=== PATIENT | male | born 1965 | race Caucasian/White ===

== ENCOUNTER 2020-12-10 21:06 | Inpatient (IN) | payer MEDICARE, OTHER ==
[~2020-12-10] VITALS: Ht 182.9 cm; Wt 82.1 kg
--- NOTE | 2020-12-10 21:10 | NUR ---
Patient BIB pvt ambulance from [facility]. Patient on 5150 hold for DTS /DTO. per 5150 hold patient was threatening to physically harm staff at assisted living he was at. Patient ambulating with steady gait. Follow commands selectively. Patient removed all articles of clothing upon arrival and demanding a gown in an aggressive manner. Provided gown to patient and assured safety. Patient noted standing and pacing with fists opening and closing. Dr. Paul aware with new orders received
--- NOTE | 2020-12-10 21:14 | NUR ---
Requested security at bedside. Per Security Nav he has other security matters to attend at this time. Explained patient needs supervision. Security states "he will be back KORTNEY".
[2020-12-10] MEDS ORDERED: HALOPERIDOL LACTATE 5 MG/1 ML VIAL IM ONE (21:15)
[2020-12-10] MEDS ORDERED: HALOPERIDOL LACTATE 5 MG/1 ML VIAL ONE (21:16)
--- NOTE | 2020-12-10 21:24 | NUR ---
Patient has been medically cleared by Dr. Alee Paul
[2020-12-10] MEDS ORDERED: HALO2TAB PO (21:25)
[2020-12-10] MEDS ORDERED: LORA-259 PO (21:25)
--- NOTE | 2020-12-10 21:29 | NUR ---
Attempted to give report on patient, was notified that "we are busy, wait 30 minutes".
--- NOTE | 2020-12-10 21:30 | NUR ---
Security at bedside present 1:1 with patient
--- NOTE | 2020-12-10 21:45 | NUR ---
Patient in bed sleeping but easily arousable. Breathing even and unlabored. denies any pain or discomfort. NAD noted. Security at bedside
--- NOTE | 2020-12-10 22:32 | NUR ---
Patient brought to [facility] via gurney from [facility] accompanied by staff nurse. Patient admitted on 5149 for Psychosis and DTO under the care of and . Per 5149 patient was threatening to physically harm staff at assisted living where he was .Upon assessment.Patient alert x4.No suidical ideation.Denies pain.No s/s of distress noted.Normal affect. Ambulates to bathroom .Skin dry and warm to touch.Demanding for sleeping pills.Skin assessment was limited d/t refusal.Patient's right handbook and advisement given to patient.Rights and unit rules/expectation explained.Pt oriented to the unit,the phone,the restrooms .Safety measures in place.Will continue to monitor.
[2020-12-10 22:45] VITALS: BP 128/68
[2020-12-10] MEDS ORDERED: BLOOD SUGAR DIAGNOSTIC 1 EACH STRIP VI ONE (23:00)
[2020-12-10] MEDS ORDERED: ACETAMINOPHEN 325 MG TABLET PO PRN (23:00)
[2020-12-10] MEDS ORDERED: MAGNESIUM HYDROXIDE 30 ML LIQUID UDC PO PRN (23:00)
[2020-12-10] MEDS ORDERED: MAG HYDROX/AL HYDROX/SIMETH 30 ML LIQUID UDC PO PRN (23:00)
[2020-12-10] MEDS: TEMAZEPAM 7.5 MG CAPSULE PO PRN (23:26)
[2020-12-11] MEDS: LORAZEPAM 0.5 MG TABLET PO PRN ×2 (01:42→06:59)
[2020-12-11] MEDS: NICOTINE 21 MG/24HR PATCH TD SCH (05:20)
--- NOTE | 2020-12-11 06:07 | NUR ---
PAtient slept 4 1/2 hrs.Demanding for nicotine gum.Applied nicotine patch on his upper arm .Patient Stated he still wants nicotine gums later this morning.
[2020-12-11 07:30] VITALS: BP 122/75
[2020-12-11 08:59] VITALS: BP 122/75
--- NOTE | 2020-12-11 11:46 | NUR ---
Gps/Safety Lamp Keeper- Lab. called has specimen available in the lab, needed order for MRSA swab , order was put in for Dr Sebastian
--- NOTE | 2020-12-11 12:39 | NUR ---
Gps/General Neurologist- Per P.T. patient refusing to work with him, patient is ambulatory noted steady gait
--- NOTE | 2020-12-11 15:50 | NUR ---
Gps/Fiscal Clerk- Stayed in his room most of the afternoon, napping on and off, wants his door closed. discouraged from closing his door.
[2020-12-11 16:00] VITALS: BP 126/87
[2020-12-11] MEDS: DIVALPROEX 500 MG TABLET.DR PO SCH (17:48)
[2020-12-11 20:00] VITALS: BP 127/79
[2020-12-11] MEDS: BENZTROPINE MESYLATE 0.5 MG TABLET PO SCH (20:15)
[2020-12-11] MEDS ORDERED: HALOPERIDOL 2 MG TABLET PO SCH (21:00)
[2020-12-11] MEDS: TEMAZEPAM 7.5 MG CAPSULE PO PRN (23:53)
--- NOTE | 2020-12-11 23:54 | NUR ---
GPS: Pt.still awake at this time. Easily irritable when approached by staff. Restoril 7.5mg given PO for insomnia. Discouraged from closing room door. Unit rules explained to pt.again. Safety checks done Q15 minutes as scheduled. Quiet environment provided to facilitate sleep.
[2020-12-12] MEDS: LORAZEPAM 0.5 MG TABLET PO PRN (00:43)
--- NOTE | 2020-12-12 06:26 | NUR ---
GPS: Pt. slept for 3.30 last night. Remains paranoid,guarded,easily irritable when approached. Showered earlier after some encouragements from staff. Safe environment provided. Will continue to monitor.
[2020-12-12 07:30] VITALS: BP 118/79
[2020-12-12] MEDS: BENZTROPINE MESYLATE 0.5 MG TABLET PO SCH ×2 (09:07→20:12)
[2020-12-12] MEDS: HALOPERIDOL 5 MG TABLET PO SCH ×2 (09:07→20:12)
[2020-12-12] MEDS: NICOTINE 21 MG/24HR PATCH TD SCH (09:08)
[2020-12-12] MEDS: DIVALPROEX 500 MG TABLET.DR PO SCH ×2 (09:08→17:39)
--- NOTE | 2020-12-12 10:42 | NUR ---
TATUM Family Contact: TATUM received a call from patient's brother, Sundeep ([phone]) from [place] who provided collateral information. Sundeep shared that patient was conserved in [place] for many years and was residing in [facility] ([phone]) for several years Peace Shravan ([phone]) Pot Builder at [facility]. Recently, patient's conservatorship was "dropped immediately" Conservator Mindy Moss ([phone]) from the [facility] Public Guardian. Sundeep stated that the patient was transferred to [facility] in [facility] ([phone]) where he was for a couple weeks until he was [facility]. TATUM discussed possible discharge plans with Sundeep for the patient here in [place]. Sundeep is agreeable with the patient going to a locked SNF. TATUM informed Sundeep that we will try to contact the public guardian's office to clarify why the case was dropped.
--- NOTE | 2020-12-12 11:02 | NUR ---
[facility] Public Guardian Contact: TATUM contacted patient's previous Conservator Mindy Moss ([phone]) from the [facility] Public Guardian. She stated that she is no longer the patient's conservator as the case was terminated by the court. TATUM inquired as to why the case was terminated and she stated she cannot discuss the case. Mindy provided the main number to the public guardian office ([phone]) to collect more information. TATUM called ([phone]) and left a message for Duty Worker for Angelica Romero to contact this manager social back.
--- NOTE | 2020-12-12 11:25 | NUR ---
TATUM Initial Discharge Plan: [place] [address] ([phone]). Patient will require locked SNF placement upon discharge. Patient's brother Sundeep Monte ([phone]) is involved in the patient's care however he lives in [place]. Sundeep requested a locked SNF placement for the patient. TATUM will continue to work with patient, family, and MD to ensure a safe and proper discharge plan.
--- NOTE | 2020-12-12 13:05 | NUR ---
Firearms Report: Antique Finisher completed and submitted a [employer] firearms report for 5150 danger to self, others, and grave disability certifications. A copy of report has been placed in patient chart.
[2020-12-12 15:00] VITALS: BP 128/82
[2020-12-12 20:10] VITALS: BP 129/63
[2020-12-12] MEDS: TEMAZEPAM 7.5 MG CAPSULE PO PRN (23:11)
[2020-12-13 06:26] LABS: BASOPHILS % (AUTO) 0.4 % (0.0-2.0); EOSINOPHILS # (AUTO) 0.1 K/uL (0.0-0.7); EOSINOPHILS % (AUTO) 0.7 % (0.0-7.0); HEMATOCRIT 43.3 % (36.7-47.1); HEMOGLOBIN 14.5 g/dL (12.5-16.3); LYMPHOCYTES # (AUTO) 4.2 K/uL (20.0-40.0); LYMPHOCYTES % (AUTO) 49.3 % (20.5-51.5); MEAN CORPUSCULAR HEMOGLOBIN 31.8 uug (23.8-33.4); MEAN CORPUSCULAR HGB CONC 33 g/dL (32.5-36.3); MEAN CORPUSCULAR VOLUME 95.1 fL (73.0-96.2); MONOCYTES # (AUTO) 0.4 K/uL (2.0-10.0); MONOCYTES % (AUTO) 4.8 % (0.0-11.0); NEUTROPHILS # (AUTO) 3.9 K/uL (1.8-8.9); NEUTROPHILS % (AUTO) 44.8 % (38.5-71.5); PLATELET COUNT (AUTO) 160 K/uL (152-348); RED BLOOD CELL COUNT(AUTO) 4.56 MIL/uL (4.06-5.63); WHITE BLOOD COUNT (AUTO) 8.6 K/uL (3.6-10.2)
[2020-12-13 06:54] LABS: BILIRUBIN,TOTAL 0.2 mg/dL (0.2-1.0); PHOSPHOROUS 3.6 mg/dL (2.5-4.9); POTASSIUM 4.1 mmol/L (3.5-5.1); TOTAL PROTEIN, SERUM 7.5 g/dL (6.4-8.2)
[2020-12-13 07:30] VITALS: BP 102/58
[2020-12-13] MEDS: BENZTROPINE MESYLATE 0.5 MG TABLET PO SCH ×2 (08:43→20:12)
[2020-12-13] MEDS: HALOPERIDOL 5 MG TABLET PO SCH ×2 (08:43→20:12)
[2020-12-13] MEDS: NICOTINE 21 MG/24HR PATCH TD SCH (08:43)
[2020-12-13] MEDS: DIVALPROEX 500 MG TABLET.DR PO SCH ×2 (08:43→17:27)
--- NOTE | 2020-12-13 10:13 | NUR ---
TATUM SNF Referral: Faxed patient's referral packet attention to Sundeep to the following facilities for review and possible placement [facility] ([phone]), [facility] [place] ([phone]), [facility] ([phone]), [facility] ([phone]). Addendum: 12/13/20 at 1508 by AMPARO ALMONTE Patient is accepted at [facility].
--- NOTE | 2020-12-13 15:31 | NUR ---
[facility] SNF Contact: TATUM spoke with Lakeshia from [facility] ([phone]) who stated that they are no longer able to accept the patient at their facility. Patient is accepted at [facility] ([phone]) for placement.
[2020-12-13 16:00] VITALS: BP 114/62
[2020-12-13] MEDS: LORAZEPAM 1 MG TABLET PO PRN (16:28)
[2020-12-13 20:16] VITALS: BP 109/71
[2020-12-14] MEDS: LORAZEPAM 1 MG TABLET PO PRN (01:43)
[2020-12-14] MEDS: TEMAZEPAM 7.5 MG CAPSULE PO PRN (02:24)
[2020-12-14 07:30] VITALS: BP_SYST 144; BP_SYST 94; BP_DIAS 67; BP_DIAS 96
--- NOTE | 2020-12-14 07:30 | NUR ---
Patient is walking in hallway. Knows that he is being Dc's today. Calm and cooperative. Refused to alan puentes because he says it makes his hear voices and nicotine patch because it increases his cravings. Will continue to monitor.
--- NOTE | 2020-12-14 08:27 | NUR ---
Discharge Note: Patient will be discharged to fci facility, [facility] [place] [place] [address] ([phone]) via Ambulance transportation at 11:00am today. Legal Assistant spoke with Major, Power Engineer at [facility] ([phone]), and he confirmed that patient will be accepted at their facility today. Patient is alert and oriented x3. Patient is not able to plan for self-care at this time but is willing to accept care provided at the facility. Patient denies suicidal or homicidal ideation. Patient is aware and agreeable with discharge plans. Patient presents with appropriate mood and congruent affect. Patient will follow-up with Psychiatrist Dr. Garland and Veterinary Science Teacher Dr. Lynne at [facility]. Patients brotherSundeep ([phone]) is made aware and is agreeable with discharge plans.
[2020-12-14] MEDS: BENZTROPINE MESYLATE 0.5 MG TABLET PO SCH ×2 (08:56→09:00)
[2020-12-14] MEDS: DIVALPROEX 500 MG TABLET.DR PO SCH (08:56)
[2020-12-14] MEDS: HALOPERIDOL 5 MG TABLET PO SCH ×2 (08:56→09:25)
[2020-12-14] MEDS: NICOTINE 21 MG/24HR PATCH TD SCH ×2 (08:56→09:00)
[2020-12-14] MEDS ORDERED: IBUPROFEN 600 MG TABLET PO PRN (09:15)
[2020-12-14 11:15] VITALS: BP 118/78
--- NOTE | 2020-12-14 11:30 | NUR ---
Patient discharge to SN[facility]. All paper work completed and signed. All patient belongings returned and list signed and placed in chart. ID band removed. Medications given as ordered. Report given to Henrique of facility. Patient picked up and transported by ambulance. All paperwork sent with the patient.
[2020-12-16 06:12] LABS: CALCITRIOL VIT D,1,25 DIHYDROX 46.1
== END 2020-12-14 11:30 | DRG 885 ==
LOC: ER 21:08 → GPS 22:05
PROVIDERS: ADMIT Psychiatry & Neurology Psychiatry; ATTEND Nurse Practitioner Acute Care
DX: F20.0 Paranoid schizophrenia (principal); E83.52 Hypercalcemia; E86.1 Hypovolemia; F17.210 Nicotine dependence, cigarettes, uncomplicated; Z20.822 Contact with and (suspected) exposure to COVID-19
CPT/HCPCS: 36415; 82652; 83735; 83970; 84100; 85025; A4663; J1630